=== PATIENT | male | born 1970 | race Caucasian/White ===

== ENCOUNTER 2017-04-12 10:45 | Outpatient (CLI) | payer BC ==
--- NOTE | 2017-04-12 12:16 | Diagnostic Imaging Report ---
Indication: Fall Technique: XRAY Hand Complete R Comparison: None Findings: There is a minimally displaced spiral fracture through the shaft of the fifth metacarpal. Joint spaces and anatomic alignment preserved. No radiopaque foreign body seen. Impression: Minimally displaced spiral fracture through the shaft of the fifth metacarpal.
== END 2017-04-12 12:45 | disposition home or self-care (01) ==
LOC: RAD 10:45
DX: S62.326A Displaced fracture of shaft of fifth metacarpal bone, right hand, initial encounter for closed fracture (principal); M79.641 Pain in right hand; X58.XXXA Exposure to other specified factors, initial encounter; Y93.9 Activity, unspecified; Y92.9 Unspecified place or not applicable

== ENCOUNTER 2018-06-09 14:19 | Outpatient (CLI) | payer BC ==
--- NOTE | 2018-06-09 16:52 | Diagnostic Imaging Report ---
Indication: Right hand pain, status post fall 2 days ago Technique: 3 views right hand Comparison: none Findings: Sideplate and screws are seen reducing old healed fifth metacarpal fracture. No acute fractures. No dislocations. Hardware appears intact. Impression: Negative
--- NOTE | 2018-06-09 17:14 | Diagnostic Imaging Report ---
Indications: Pain, status post fall 2 days ago Technique: Two views of the right forearm Comparison: None Findings: No acute fractures. No dislocations. There is a small olecranon spur. Surgical hardware is seen in the hand Impression: Negative
== END 2018-06-09 16:19 | disposition home or self-care (01) ==
LOC: RAD 14:19
DX: S63.91XA Sprain of unspecified part of right wrist and hand, initial encounter (principal); W19.XXXA Unspecified fall, initial encounter; Y92.9 Unspecified place or not applicable

== ENCOUNTER → 2019-08-14 | Outpatient (CLI) | payer BC ==
--- NOTE | 2019-08-14 15:37 | Diagnostic Imaging Report ---
Indication: Cough Technique: XRAY Chest 2v Comparison: None Findings: Heart size and mediastinal contours within normal limits. There is no focal airspace consolidation, pleural effusion, pneumothorax or radiographic evidence of pulmonary edema. There are degenerative changes in the spine. No acute osseous abnormality identified. IMPRESSION: No radiographic evidence of acute cardiopulmonary disease. Specifically, no focal airspace consolidation as questioned clinically.
== END | disposition home or self-care (01) ==
LOC: RAD 15:23
DX: R05 Cough (principal)
CPT/HCPCS: 71046